=== PATIENT | female | born 1975 | race Native Hawaiian/Other Pacific Islander ===

== ENCOUNTER 2017-09-23 09:51 | Emergency (ER) | payer BC ==
[2017-09-23 10:03] VITALS: BP 117/88; PULSE 104; RESP 20; TEMP 98.1; O2SAT 95; BMI 32.1
[2017-09-23] MEDS ORDERED: Povidone Iodine Topical 10% Sol ONE (11:23)
[2017-09-23] MEDS ORDERED: Tmp-Smz 800 mg-160 mg DS Tab PO STA (11:32)
[2017-09-23] MEDS ORDERED: Naproxen 500 MG TAB PO STA (11:33)
--- NOTE | 2017-09-23 11:35 | RAD ---
PROCEDURE: Left Index finger radiographs. HISTORY: FB COMPARISON: None. TECHNIQUE: AP radiograph of the left hand, as well as spot oblique and lateral images of index finger were obtained. FINDINGS: LEFT INDEX FINGER: Normal left index finger, without fracture or focal lesion. Remainder of the left hand (as seen on the AP view) grossly intact. JOINTS: Normal. SOFT TISSUES: There is a radiopaque foreign body in the soft tissues of the distal tip of index finger. OTHER FINDINGS: None. IMPRESSION: Radiopaque foreign body in the distal tip of the index finger.
--- NOTE | 2017-09-23 11:49 | ED PDOC ---
HPI: Wound Care - HPI Time Seen by Provider: 09/23/17 10:34 Chief Complaint (Nursing): Suture/Staple Removal Chief Complaint (Provider): Finger injury History Per: Patient History Of Present Illness: Lo Isaac is a 42 year old female, with a past medical history of diabetes, who presents to the emergency department complaining of a left finger injury onset since this morning. Patient states she was at work opening up a stapler when a staple got caught in her left 2nd digit finger. She denies any bleeding, fever or chills. No further medical complaints. PMD: None provided. Exam Limitations: no limitations Onset/Duration Of Symptoms: Days (x1, this morning) Location Of Injury: Left: Hand (2nd digit) Severity: Mild Pain Scale Rating Of: 4 Past Medical History Reviewed: Historical Data, Nursing Documentation, Vital Signs Vital Signs: Last Vital Signs Temp 98.1 F 09/23/17 10:02 Pulse 104 H 09/23/17 10:02 Resp 20 09/23/17 10:02 BP 117/88 09/23/17 10:02 Pulse Ox 95 09/23/17 10:02 - Medical History PMH: Anxiety, Diabetes - Surgical History Surgical History: - Family History Family History: States: Unknown Family Hx - Social History Current smoker - smoking cessation education provided: Yes (Some days) Alcohol: Social Drugs: Denies - Immunization History Hx Tetanus Toxoid Vaccination: Yes - Home Medications Home Medications: Ambulatory Orders Medication Instructions Recorded Naproxen [Naprosyn] 500 mg PO BID PRN #15 tablet 09/23/17 Sulfamethoxazole/Trimethoprim 1 tab PO BID #10 tab 09/23/17 [Bactrim DS 800 mg-160 mg] - Allergies Allergies/Adverse Reactions: Allergies Allergy/AdvReac Type Severity Reaction Status Date / Time No Known Allergies Allergy Verified 09/23/17 10:13 Review of Systems ROS Statement: Except As Marked, All Systems Reviewed And Found Negative Constitutional: Negative for: Fever, Chills Musculoskeletal: Positive for: Hand Pain (left finger 2nd digit injury) Physical Exam - Reviewed Nursing Documentation Reviewed: Yes Vital Signs Reviewed: Yes - Physical Exam Appears: Positive for: Well, Non-toxic, No Acute Distress Head Exam: Positive for: ATRAUMATIC, NORMAL INSPECTION, NORMOCEPHALIC Skin: Positive for: Normal Color, Warm, Dry Eye Exam: Positive for: EOMI, Normal appearance, PERRL Neck: Positive for: Normal, Painless ROM, Supple Respiratory: Negative for: Respiratory Distress Extremity: Positive for: Normal ROM, Other (There is a staple protruding from the middle of the nail in the left 2nd digit) Neurologic/Psych: Positive for: Alert, Oriented - ECG O2 Sat by Pulse Oximetry: 95 (RA) Pulse Ox Interpretation: Normal Procedure: Wound Repair - Procedure Procedure: Wound Repair: Foreign body removed - Consent Obtained Consent obtained: Verbal - Performed by Performed by: Attending Physician - Location Finger:: Left, Index - Patient tolerated procedure Patient Tolerated Procedure:: Well Medical Decision Making Medical Decision Making: Initial Impression: Finger injury Initial Plan: --Urine --Naproxen 500 mg PO --Bactrim DS Tab --Hand left 2nd digit (finger) [RAD] --reevaluation Scribe Attestation: Documented by Ronak Linder, acting as a scribe for Kaur Garcia MD Provider Scribe Attestation: All medical record entries made by the Scribe were at my direction and personally dictated by me. I have reviewed the chart and agree that the record accurately reflects my personal performance of the history, physical exam, medical decision making, and the department course for this patient. I have also personally directed, reviewed, and agree with the discharge instructions and disposition. Disposition - Clinical Impression Clinical Impression: Puncture wound, Foreign body finger - Disposition Disposition: Routine/Home Disposition Time: 11:32 Condition: STABLE Additional Instructions: FOLLOW-UP WITH [employer] FOR REEVALUATION. Prescriptions: Naproxen [Naprosyn] 500 mg PO BID PRN #15 tablet PRN Reason: Pain, Moderate (4-7) Sulfamethoxazole/Trimethoprim [Bactrim DS 800 mg-160 mg] 1 tab PO BID #10 tab Instructions: Soft Tissue Foreign Body (ED), Puncture Wound (ED) Forms: [employer] ([employer])
[2017-09-23] MEDS ORDERED: Tmp-Smz 800 mg-160 mg DS Tab ONE (12:17)
[2017-09-23] MEDS ORDERED: Naproxen 500 MG TAB PO ONE (12:17)
--- NOTE | 2017-09-23 13:39 | RAD ---
PROCEDURE: Left Index finger radiographs. HISTORY: Post-FB removal COMPARISON: Plain radiographs performed earlier the same day. TECHNIQUE: AP radiograph of the left hand, as well as spot oblique and lateral images of index finger were obtained. FINDINGS: LEFT INDEX FINGER: Normal left index finger, without fracture or focal lesion. Remainder of the left hand (as seen on the AP view) grossly intact. JOINTS: Normal. SOFT TISSUES: There has been interval removal of foreign body from the tip of the index finger. OTHER FINDINGS: None. IMPRESSION: Interval removal of foreign body in the tip of the index finger.
== END 2017-09-23 12:20 | disposition home or self-care (01) ==
LOC: H.ER 09:51
DX: S61.211A Laceration without foreign body of left index finger without damage to nail, initial encounter (principal); W26.8XXA Contact with other sharp object(s), not elsewhere classified, initial encounter; Y99.0 Civilian activity done for income or pay; E11.9 Type 2 diabetes mellitus without complications; F41.9 Anxiety disorder, unspecified